=== PATIENT | male | born 1945 | race Caucasian/White ===

== ENCOUNTER → 2016-08-18 | Outpatient (CLI) | payer OTHER | LOC: FIMAGING 13:34 | PROVIDERS: ATTEND Physical Medicine & Rehabilitation | DX: M51.36 Other intervertebral disc degeneration, lumbar region (principal); M47.896 Other spondylosis, lumbar region; M12.88 Other specific arthropathies, not elsewhere classified, other specified site; M99.73 Connective tissue and disc stenosis of intervertebral foramina of lumbar region; M48.06 Spinal stenosis, lumbar region ==

== ENCOUNTER → 2016-09-30 | Outpatient (CLI) | payer OTHER | LOC: BMCIMAGING 11:29 | PROVIDERS: ATTEND Podiatrist Foot & Ankle Surgery | DX: M79.672 Pain in left foot (principal) ==

== ENCOUNTER → 2017-03-16 | Outpatient (CLI) | payer OTHER | LOC: BMCIMAGING 08:23 | PROVIDERS: ATTEND Podiatrist Foot & Ankle Surgery | DX: M79.672 Pain in left foot (principal); M77.32 Calcaneal spur, left foot; M19.072 Primary osteoarthritis, left ankle and foot ==

== ENCOUNTER → 2017-08-15 | Outpatient (CLI) | payer OTHER | LOC: BMCIMAGING 08:39 | PROVIDERS: ATTEND Physician Assistant | DX: M25.561 Pain in right knee (principal); M17.11 Unilateral primary osteoarthritis, right knee; M25.461 Effusion, right knee ==

== ENCOUNTER 2017-11-20 23:23 | Emergency (ER) | payer OTHER ==
--- NOTE | 2017-11-21 00:14 | EDPHY ---
H & P Smoking Status: Never smoked Time Seen by Provider: 11/20/17 23:44 HPI/ROS: CHIEF COMPLAINT: Left foot pain HISTORY OF PRESENT ILLNESS: Patient is a 72-year-old male with a history of foot arthritis and plantar fasciitis here with approximately 24 hr of worsening left lateral plantar foot pain. Reports there is no injury. He was recently treated for arthritis in the midfoot with a steroid injection and felt improvement of his pain. Denies any fever or redness or swelling. Is able to ambulate but this is painful. REVIEW OF SYSTEMS: Constitutional: No fever, no chills. Eyes: No discharge. ENT: No sore throat. Cardiovascular: No chest pain, no palpitations. Respiratory: No cough, no shortness of breath. Gastrointestinal: No abdominal pain, no vomiting. Genitourinary: No hematuria. Musculoskeletal: No back pain. Skin: No rashes. Neurological: No headache. (Chacho Sosa) Physical Exam: General Appearance: Alert and no distress. Eyes: Pupils equal and round no injection. Respiratory: Chest is nontender, lungs are clear to auscultation. Cardiac: regular rate and rhythm. Gastrointestinal: Abdomen is soft and nontender, no masses, bowel sounds normal. Musculoskeletal: Neck is supple and nontender. Extremities have full range of motion. Tenderness to the left plantar fascia and 5th metatarsophalangeal joint. No erythema or swelling. Cap refill less than 2 sec in all 5 toes. Skin: No rashes or lesions. (Chacho Sosa) Constitutional: Initial Vital Signs Temperature (C) 37.5 C 11/20/17 23:27 Heart Rate 73 11/20/17 23:27 Respiratory Rate 16 11/20/17 23:27 Blood Pressure 152/79 H 11/20/17 23:27 O2 Sat (%) 94 11/20/17 23:27 O2 Delivery Mode Room Air Allergies/Adverse Reactions: meloxicam Allergy (Verified 03/22/13 20:58) Hives Sulfa (Sulfonamide Antibiotics) Allergy (Verified 03/22/13 20:58) MADE EYES VERY RED Home Medications: Medication Instructions Recorded Aspirin EC [Aspirin EC 81 mg (OTC)] 81 mg PO DAILY 03/22/13 Cholecalciferol Vit D3 [Vitamin D3 2,000 units PO DAILY 03/22/13 2000 units (OTC)] Herbals/Supplements -Info Only 1 each PO AD 03/22/13 Ibuprofen [Motrin 200 mg (OTC)] 100 mg PO QID 03/22/13 Levothyroxine [Synthroid] 137 mcg PO DAILY06 03/22/13 [place]-3 Fatty Acids [Fish Oil 1000 1,000 mg PO BID 03/22/13 mg (OTC)] Simvastatin [Zocor 5 mg] 5 mg PO DAILY18 03/22/13 Terbinafine HCl [LamISIL] 250 mg PO DAILY 03/22/13 Diclofenac Sodium 1% [Voltaren Gel 2 gm TP BID #1 tube 11/21/17 (*)] Medical Decision Making ED Course/Re-evaluation: 72-year-old male here with left lateral plantar foot pain. Exam reveals no deformity or erythema or swelling or induration. X-ray reveals no acute bony abnormality. He is treated with Voltaren gel and [place] for pain control. He is given follow-up with podiatry. (Chacho Sosa) PHYSICIAN DOCUMENTATION: The patient was evaluated and managed by the Physician [employer]. My co- signature indicates that I have reviewed this chart and I agree with the findings and plan of care as documented. I am the secondary supervising physician. (Sherry Del Cid) Differential Diagnosis: Lumbar radiculopathy, plantar fasciitis, septic joint, gout, fracture, neuroma ( Chacho Sosa) - Data Points Medications Given: Discontinued Medications Hydrocodone Bitart/Acetaminophen ([place] 5/325mg Prepack#6) 1 btl TAKEHOME EDNOW ONE Stop: 11/21/17 00:33 Last Admin: 11/21/17 00:35 Dose: 1 btl Hydrocodone Bitart/Acetaminophen ([place] 5/325) 1 tab PO EDNOW ONE Stop: 11/21/17 00:32 Last Admin: 11/21/17 00:35 Dose: 1 tab Departure - Departure Disposition: Home, Routine, Self-Care Clinical Impression: Foot pain, left Condition: Good Instructions: Hydrocodone/Acetaminophen (By mouth), Plantar Fasciitis (ED) Additional Instructions: The source of you're foot pain is unclear but was likely plantar fasciitis. X- ray reveals no fracture, dislocation or other bony changes. Providing with the number for podiatry he may follow up with next week. I am also prescribing in anti-inflammatory topical gel. He may apply this twice a day to the area of pain and inflammation. Return to the ER for fever, redness or other worsening symptoms. Referrals: Lindsey Patton MD [Primary Care Provider] - As per Instructions Shirley Powell [Doctor of Podiatric Medicine] - As per Instructions Prescriptions: Diclofenac Sodium 1% [Voltaren Gel (*)] 2 gm TP BID #1 tube
[2017-11-21] MEDS ORDERED: HYDROCODONE/APAP 5/325 TAB PO ONE (00:31)
[2017-11-21] MEDS ORDERED: HYDROCOD/APAP 5/325 PREPACK#6 BTL TAKEHOME ONE (00:32)
[2017-11-21 00:40] VITALS: BP 149/95
== END 2017-11-21 00:40 | disposition home or self-care (01) ==
DX: M79.672 Pain in left foot (principal); M19.072 Primary osteoarthritis, left ankle and foot

== ENCOUNTER → 2018-01-02 | Outpatient (CLI) | payer OTHER | LOC: BMCIMAGING 14:53 | PROVIDERS: ATTEND Emergency Medicine | DX: M25.511 Pain in right shoulder (principal); Y93.55 Activity, bike riding ==

== ENCOUNTER → 2018-07-17 | Outpatient (CLI) | payer OTHER | LOC: BMCIMAGING 09:27 | PROVIDERS: ATTEND Internal Medicine | DX: J44.9 Chronic obstructive pulmonary disease, unspecified (principal) ==